=== PATIENT | female | born 1960 | race Caucasian/White ===

== ENCOUNTER 2019-07-06 17:03 | Emergency (ER) | payer OTHER ==
[2019-07-06 17:22] VITALS: BP 145/82; PULSE 68; TEMP 97.6
--- NOTE | 2019-07-06 18:23 | PDOC ---
History of Present Illness - General Chief Complaint: Syncope/Near Syncope Stated Complaint: SYNCOPY Time Seen by Provider: 07/06/19 17:30 - History of Present Illness Initial Comments: Riddhi Brothers is a 58yo woman with a PMH of HTN and anxiety who presents to the ED as a rapid response from the medical floor where she was visiting her . She states that she has been very anxious about her being admitted to the hospital, and she did not sleep well. She was watching as a nurse removed his IV, and she states that she began to feel lightheaded and her vision began to darken. She stated that she did not feel well, and someone helped her lay down on a stretcher; she began to feel improved at that time. Ms Brothers reports that she was told that she became very sweaty during the incident, and she believes that someone told her her BP was in the 80's. Currently, Ms Brothers reports that she is feeling well and requests to go back upstairs to visit her again. She denies any recent fevers, chills, nausea/vomiting, change in PO intake, change in bowel habits, travel, or other symptoms. She does state several times that she has been under a lot of stress. She reports a previous episode of syncope about 5 years ago while getting her blood drawn. She reports that multiple attempts had been made to draw labs, and she was in a lot of pain from the attempts. She stood up to leave, and had very similar symptoms as today with lightheadedness, darkening vision, and syncope. Past History - Past Medical History COPD: No HTN: Yes Psychiatric Problems: Yes (anxioety) - Suicide/Smoking/Psychosocial Hx Smoking History: Never smoked Hx Alcohol Use: No Drug/Substance Use Hx: No Review of Systems - Review of Systems Comments:: General: No fevers, no chills, no weight or appetite change, no malaise HEENT: No changes in vision, no changes in hearing, no congestion, no sore throat CV: No chest pain, no palpitations, no LE edema Pulm: No SOB, no cough, no wheezing GI: No nausea or vomiting, no change in bowel habits, no melena : No frequency, no urgency, no dysuria Musc: No back pain, no joint swelling, no recent injury Skin: No rash, no lesions, no erythema Endo: No excessive thirst, no heat/cold intolerance Heme: No unusual bruising or bleeding, no swollen glands Neuro: + syncope, no numbness/tingling, no focal weakness Vasc: No claudication Psych: No recent change in mood, no SI or HI *Physical Exam - Vital Signs Last Vital Signs Temp Pulse Resp BP Pulse Ox 97.6 F 68 16 145/82 100 07/06/19 17:05 07/06/19 17:05 07/06/19 17:05 07/06/19 17:05 07/06/19 17:05 - Physical Exam Comments: General: Comfortable, no acute distress HEENT: PERRL, EOMI, MMM, voice normal, poor dentition Cards: RRR, no murmur appreciated Pulm: Comfortable on room air, clear to auscultation bilaterally Abd: Soft, nontender, nondistended Ext: Atraumatic. No LE edema. Moves all extremities Skin: Normal color, no rashes or lesions Neuro: A&Ox3, CN grossly intact, normal speech, motor/sensory grossly intact and symmetric Psych: Mood appropriate to situation Medical Decision Making - Medical Decision Making 07/06/19 18:12 Riddhi Brothers is a 58yo woman with a PMH of HTN and anxiety who presents to the ED after an episode of syncope while visiting her , who is admitted to the hospital. Ms Brothers states that she was lightheaded, had darkening of her vision, and was reportedly diaphoretic. She currently feels fine. - May be stress reaction, due to arrhythmia, orthostatic. - Syncope workup including CBC, CMP, trop, EKG, CXR - Pt states that she does not wish to remain in the ED, will discuss w/ Dr Wallace 07/06/19 18:23 - Being evaluated by Dr Wallace 07/06/19 18:42 - Patient agrees to completing EKG but does not want to wait for labs. Offered to draw labs, and pt can be called if abnormalities are found. Does not want labs drawn - Will AMA following EKG 07/06/19 19:01 - Pt decided not to stay for EKG - AMA paperwork signed. Advised at length regarding return precautions. Pt states she will call her PMD tomorrow. Discussed with Dr Rodrigo Poe PGY2 *DC/Admit/Observation/Transfer Diagnosis at time of Disposition: Syncope Qualifiers: Syncope type: unspecified Qualified Code(s): R55 - Syncope and collapse - Discharge Dispostion Disposition: AGAINST MEDICAL ADVICE - Referrals Referrals: Sheri Lizama MD [Primary Care Provider] - - Patient Instructions Printed Discharge Instructions: DI for Syncope in Adults (Fainting) Additional Instructions: Discharge Instructions: You were seen in the emergency department after fainting. You declined any blood tests, EKG, or other workup while in the ED. Please call your regular doctor tomorrow morning for follow up. You should be seen within the next 1-2 days. Seek immediate care if you have any worsening symptoms, lightheadedness, vision changes, one-sided weakness or numbness, fainting, fall, or any other medical emergency. - Post Discharge Activity
--- NOTE | 2019-07-06 18:40 | PDOC ---
Attending Attestation - Resident Resident Name: LuiMili - ED Attending Attestation I have performed the following: I have examined & evaluated the patient, The case was reviewed & discussed with the resident, I agree w/resident's findings & plan, Exceptions are as noted - HPI HPI: 07/06/19 18:04 58y F hx of htn, depression, presents with syncopal episode. Pt states she has been with her who was admitted to the hospital yesterday and has been with him bedside all day today and yesterday - was seated and felt lighthead, blurry vision, sweaty and felt like passing out, but did not syncopize. rapid response was called she was brougth to a stretcher, pt states she started feeling better after lying down on the stretcher within a minute or two. She remebers people saying her BP Was low initially ("89"). Pt denies any asosciated headache, cp, palpitations, sob, abd pain, back pain, cough, fever/ chills, leg swelling. Pt notes a similar episode of this many years ago with a blood draw. Pt did not fall, there was no head injury, she was seated when this occurred. Physical Exam: General: no acute distress, well appearing PULM: CTA b/l. no wheezing/rales/rhonchi, no resp distress CARD: rrr, no murmers ABD: soft nontender, no rebound/guarding EXT: no edema, neg homans, ddx syncope - arrythmia, anemia, metabolic derangeent, vasovagal plan - ekg, labs, cardiac monitoring extensive discussion wih ptient - pt states her car is in visitor parking and if she is concerned if she stays, she will have to drive home in the dark, I offered her to take acab, but she is concerne that they may tow her car as sh - i vierifed with security that they willnot tow the car but after extensive discussion, pt still wants to leave. Iza discussed with her my concerns and our recommendation of obtaining bloodwork and ekg, but pt still declines, states she prefers to go upstairs to say good bye to her and to fu with her PMD. The pt is alert and oriented x 3 and I beleive the pt has an understanding of the risks of leaving. will have her return for any concerns to continue her workup.
== END 2019-07-06 19:00 | disposition left against medical advice (07) ==
LOC: JER 17:03
DX: R55 Syncope and collapse (principal)
CPT/HCPCS: 99282-25